=== PATIENT | male | born 1945 | race African-American/Black ===

== ENCOUNTER 2024-02-07 17:45 | Inpatient (IN) | payer MEDICARE, MEDICAID ==
[~2024-02-07] VITALS: Ht 180.3 cm; Wt 70.4 kg
[~2024-02-07 17:45] MED LIST: APIX5TAB PO; ATOR10TA69 PO; CARV12.545 PO; FURO20TA4 PO; MIDO5TAB4 PO; SPIR25TA6 PO; TAMS-11
[2024-02-07 17:47] VITALS: O2SAT 100
[2024-02-07] MEDS ORDERED: CEFTRIAXONE 1GM/50ML 50 ML IV ONE (18:00)
[2024-02-07] MEDS ORDERED: VANCOMYCIN 1G PREMIX 200 ML IV ONE (18:30)
[2024-02-07] MEDS: NOREPINEPHRINE 8MG/250ML PMX 250 ML IV ONE (18:31)
[2024-02-07] MEDS: MIDODRINE HCL 5MG TABLET PO ONE (18:33)
[2024-02-07 19:32] LABS: BASOPHILS % 0.7 % (0.0-2.0); EOSINOPHILS % 0.1 % (0.0-5.0); HEMATOCRIT. 38.8 % (42.0-52.0); HEMOGLOBIN. 12.8 g/dL (14.0-18.0); INR 1.9; LYMPHOCYTES % 16.5 % (20.0-50.0); MEAN CORPUSCULAR HEMOGLOBIN 27.4 pg (28.0-32.0); MEAN CORPUSCULAR HGB CONC 32.9 g/dL (31.0-37.0); MEAN CORPUSCULAR VOLUME 83.1 fL (80.0-94.0); MEAN PLATELET VOLUME 8.5 fl (7.4-10.4); MONOCYTES % 4.1 % (2.0-8.0); NEUTROPHILS % 78.6 % (40.0-76.0); PLATELET 92 x1000/uL (130-400); PROTHROMBIN TIME 20.6 sec (9.6-11.0); RED BLOOD CELL COUNT 4.67 mill/uL (4.7-6.1); RED CELL DISTRIBUTION WIDTH 24.5 % (11.6-14.6); WHITE BLOOD COUNT 10.3 x1000/uL (4.5-11.0)
[2024-02-07 19:33] LABS: DIFFERENTIAL COMMENT 1
[2024-02-07 19:34] LABS: ADD RBC MORPHOLOGY YES
[2024-02-07 19:35] LABS: CHLORIDE 103 mEq/L (98-107); POTASSIUM 4.2 mEq/L (3.5-5.1); SODIUM 136 mEq/L (136-145)
[2024-02-07 19:36] LABS: CALCIUM 8.5 mg/dL (8.7-10.4); CARBON DIOXIDE 12 mEq/L (21-32)
[2024-02-07 19:41] LABS: GLUCOSE 69 mg/dL (70-105); LACTIC ACID 8.9 mmol/L (0.4-2.0)
[2024-02-07 19:42] LABS: CREATININE 3.8 mg/dL (0.6-1.3); UREA NITROGEN BLOOD 105 mg/dL (9-23)
[2024-02-07 19:43] LABS: AMMONIA < 17 uMol/L (<32)
[2024-02-07 19:44] LABS: TROPONIN I HIGH SENSITIVITY 94 ng/L (3.0-53)
[2024-02-07] MEDS: SODIUM CHLORIDE 0.9% 1000ML BAG (SEPSIS BOLUS) IV ONE (19:44)
[2024-02-07] MEDS: PIPERACILLIN/TAZO 3.375G/50ML 50 ML IV ONE (19:44)
[2024-02-07] MEDS: PHENYLEPHRINE 50MG/250ML PMX 250 ML IV ONE (19:45)
[2024-02-07] MEDS: CEFTRIAXONE 1GM/50ML 50 ML IV NR (20:11)
[2024-02-07] MEDS ORDERED: PHENYLEPHRINE 50MG/250ML PMX 250 ML IV PRN (20:15)
[2024-02-07] MEDS: VANCOMYCIN 1G PREMIX 200 ML IV NR (20:42)
[2024-02-07 20:47] LABS: PLATELET ESTIMATE DECREASED
[2024-02-07 20:48] LABS: ANISOCYTOSIS 2+
[2024-02-07 20:49] LABS: OVALOCYTES 1+
[2024-02-07 21:23] LABS: TROPONIN I HIGH SENSITIVITY 78 ng/L (3.0-53)
[2024-02-07] MEDS: BLOOD SUGAR DIAGNOSTIC STRIP TEST NR (22:10)
[2024-02-07] MEDS ORDERED: DOCUSATE SODIUM 100MG CAPSULE PO PRN (22:15)
[2024-02-07] MEDS ORDERED: DEXTROSE 50% WATER 50ML SYRINGE IV PRN (22:15)
[2024-02-07] MEDS ORDERED: CLONIDINE 0.1MG TABLET PO PRN (22:15)
[2024-02-07] MEDS ORDERED: IPRATROPIUM/ALBUTEROL 0.5-3(2.5)MG/3ML NEB HHN PRN (22:15)
[2024-02-07] MEDS ORDERED: PHENYLEPHRINE 50 MG in DEXT 5% WATER 245 ML IV PRN (22:15)
[2024-02-07] MEDS ORDERED: ONDANSETRON HCL 4MG/2ML INJ IV PRN (22:15)
[2024-02-07] MEDS ORDERED: NOREPINEPHRINE 8 MG in DEXT 5% WATER 242 ML IV PRN (22:15)
[2024-02-07] MEDS ORDERED: ACETAMINOPHEN 325MG TABLET PO PRN ×2 (22:15)
[2024-02-07] MEDS ORDERED: GUAIFENESIN 200MG/10ML SUGAR FREE UDC PO PRN (22:15)
[2024-02-07] MEDS ORDERED: SODIUM CHLORIDE 0.9% 1,000 ML IV SCH (22:15)
[2024-02-07 23:21] VITALS: BP 146/111; PULSE 74; RESP 26; TEMP 98
[2024-02-07 23:27] LABS: TRIGLYCERIDE 108 mg/dL (0-150)
[2024-02-07 23:28] LABS: AMYLASE 611 IU/L (30-118); LDL CHOLESTEROL 129 mg/dL (5-100)
[2024-02-07 23:29] LABS: ALBUMIN 2.3 g/dL (3.2-4.8); CHOLESTEROL 167 mg/dL (<200); HDL CHOLESTEROL < 20 mg/dL (>55); PHOSPHORUS 6.8 mg/dL (2.5-4.9)
[2024-02-07 23:30] VITALS: BP 172/153; PULSE 66; RESP 14
[2024-02-07 23:39] VITALS: BP 146/111; PULSE 78; RESP 16; TEMP 98
[2024-02-07 23:39] LABS: ETHANOL BLOOD < 10 mg/dL (<10)
[2024-02-07 23:45] VITALS: BP 128/103; PULSE 71; RESP 15
[2024-02-08] VITALS (92 sets, daily range): BP systolic 69–134; BP diastolic 45–124; PULSE 60–79; RESP 12–33; TEMP 97.3–98.5
[2024-02-08] MEDS: NOREPINEPHRINE 8MG/250ML PMX 250ML IV PRN (00:48)
[2024-02-08 05:12] LABS: HEMATOCRIT 35.3 % (42.0-52.0); HEMOGLOBIN 11.4 g/dL (14.0-18.0); MEAN CORPUSCULAR HEMOGLOBIN 27.1 pg (28.0-32.0); MEAN CORPUSCULAR HGB CONC 32.3 g/dL (31.0-37.0); MEAN CORPUSCULAR VOLUME 84.1 fL (80.0-94.0); RED CELL DISTRIBUTION WIDTH 24.5 % (11.6-14.6)
[2024-02-08 05:18] LABS: CHLORIDE 103 mEq/L (98-107); POTASSIUM 3.9 mEq/L (3.5-5.1); SODIUM 135 mEq/L (136-145)
[2024-02-08 05:19] LABS: CARBON DIOXIDE 16 mEq/L (21-32)
[2024-02-08 05:20] LABS: CALCIUM 8.2 mg/dL (8.7-10.4)
[2024-02-08 05:24] LABS: CREATININE 3.6 mg/dL (0.6-1.3); GLUCOSE 106 mg/dL (70-105)
[2024-02-08 05:25] LABS: LACTIC ACID 6.7 mmol/L (0.4-2.0); UREA NITROGEN BLOOD 83 mg/dL (9-23)
[2024-02-08 05:26] LABS: ALANINE AMINOTRANSFERASE 132 IU/L (10-49); ALBUMIN 2.3 g/dL (3.2-4.8); ASPARTATE AMINOTRANSFERASE 287 IU/L (<34); CREATINE KINASE 89 IU/L (46-171)
[2024-02-08 05:27] LABS: PROTEIN TOTAL 6.3 g/dL (6.0-8.3)
[2024-02-08] MEDS: SODIUM CHLORIDE 0.9% 1,000 ML IV SCH (05:40)
[2024-02-08 06:03] LABS: CLARITY URINE TURBID (CLEAR); COLOR URINE ORANGE (YELLOW); GLUCOSE URINE NEGATIVE (NEGATIVE); KETONES URINE NEGATIVE (NEGATIVE); LEUKOCYTE ESTERASE URINE TRACE (NEGATIVE); NITRITE URINE NEGATIVE (NEGATIVE); OCCULT BLOOD URINE 3+ (NEGATIVE); PROTEIN URINE 1+ (NEGATIVE); SPECIFIC GRAVITY URINE 1.012 (1.005-1.030)
[2024-02-08 06:08] LABS: TROPONIN I HIGH SENSITIVITY 109 ng/L (3.0-53)
[2024-02-08 06:25] LABS: *AMPHETAMINES SCREEN URINE NEGATIVE (NEGATIVE); *BARBITURATES SCREEN URINE NEGATIVE (NEGATIVE); *BENZODIAZEPINES SCREEN URINE NEGATIVE (NEGATIVE); *COCAINE SCREEN URINE NEGATIVE (NEGATIVE); METHADONE URINE SCREEN NEGATIVE (NEGATIVE); OPIATES URINE SCREEN NEGATIVE (NEGATIVE)
[2024-02-08 06:26] LABS: CANNABINOID URINE SCREEN NEGATIVE (NEGATIVE); ECSTASY MDMA SCREEN URINE NEGATIVE (NEGATIVE); PHENCYCLIDINE URINE SCREEN NEGATIVE (NEGATIVE)
[2024-02-08] MEDS: INSULIN LISPRO 100 UNITS/ML SUBCUT SCH (07:43)
[2024-02-08] MEDS: BLOOD SUGAR DIAGNOSTIC STRIP TEST SCH (07:43)
[2024-02-08] MEDS: TAMSULOSIN HCL 0.4MG SR CAPSULE PO SCH (08:30)
[2024-02-08] MEDS: APIXABAN 2.5 MG TABLET PO SCH (08:30)
[2024-02-08] MEDS: PANTOPRAZOLE 40MG DR TABLET PO SCH (08:30)
[2024-02-08 08:42] LABS: TRIGLYCERIDE 109 mg/dL (0-150)
[2024-02-08 08:43] LABS: LDL CHOLESTEROL 117 mg/dL (5-100)
[2024-02-08 08:44] LABS: CHOLESTEROL 173 mg/dL (<200); HDL CHOLESTEROL < 20 mg/dL (>55)
[2024-02-08 08:46] LABS: T4 FREE 0.57 ng/dL (0.89-1.76); THYROID STIMULATING HORMONE 22.55 uIU/mL (0.55-4.78)
[2024-02-08] MEDS: MIDODRINE HCL 5MG TABLET PO SCH ×2 (09:22→18:26)
[2024-02-08] MEDS: ALBUMIN HUMAN 25GM/100ML (25%) IV NR (09:22)
[2024-02-08 09:25] LABS: BACTERIA URINE TRACE; RBC URINE TNTC /hpf (0-2); SQUAMOUS EPITHELIAL CELL URINE 1+ /lpf (RARE/1+); YEAST URINE NONE SEEN
[2024-02-08 09:39] LABS: AMMONIA < 17 uMol/L (<32)
[2024-02-08 09:41] LABS: BG CARBOXYHEMOGLOBIN 0.4 % (0.5-1.5); BG DEOXYHEMOGLOBIN 3.7 % (0.0-5.0); BG FRACTION INSPIRED OXYGEN 21; BG HCO3 ACT 12.7 mmol/L (22.0-26.0); BG METHEMOGLOBIN 0.3 % (0.0-1.5); BG OXYGEN SATURATION 96.3 % (92.0-98.5); BG OXYHEMOGLOBIN 95.6 % (94.0-97.0); BG PCO2 23.1 mmHg (35.0-45.0); BG PH 7.358 (7.350-7.450); BG PO2 93.8 mmHg (75.0-100.0); BG SAMPLE SITE LEFT RADIAL; BG TOTAL HEMOGLOBIN 11.5 g/dL (12.0-18.0); BG VENT MODE ROOM AIR
[2024-02-08 10:37] LABS: PLATELET 90 x1000/uL (130-400)
[2024-02-08] MEDS: MIDODRINE HCL 5MG TABLET PO NR (13:46)
[2024-02-08 15:36] LABS: IRON 91 ug/dL (65-175)
[2024-02-08 15:38] LABS: CREATINE KINASE MB FRACTION 1.2 ng/mL (0.5-3.6)
[2024-02-08] MEDS ORDERED: LOSA100T33 MT (15:38)
[2024-02-08 15:39] LABS: TOTAL IRON BINDING CAPACITY 152 ug/dl (250-425)
[2024-02-08 15:42] LABS: FERRITIN 689 ng/mL (22-322); FOLIC ACID (FOLATE) SERUM 5.07 ng/mL (>5.38)
[2024-02-08 16:15] LABS: VITAMIN B12 SERUM > 2000 pg/mL (211-911)
[2024-02-08 17:35] LABS: INR 2.1; PROTHROMBIN TIME 22.3 sec (9.6-11.0)
[2024-02-08] MEDS: CEFTRIAXONE 1GM/50ML 50 ML IV SCH (18:26)
[2024-02-08] MEDS ORDERED: CEFTRIAXONE 1GM/50ML 50 ML IV SCH (20:00)
[2024-02-08] MEDS: ATORVASTATIN CALCIUM 10MG TABLET PO SCH (21:07)
[2024-02-09] VITALS (46 sets, daily range): BP systolic 67–144; BP diastolic 29–118; PULSE 53–87; RESP 12–35; TEMP 97.4–98
[2024-02-09] MEDS: SODIUM CHLORIDE 0.9% 1,000 ML IV SCH (00:24)
[2024-02-09 05:34] LABS: CHLORIDE 108 mEq/L (98-107); POTASSIUM 3.7 mEq/L (3.5-5.1); SODIUM 139 mEq/L (136-145)
[2024-02-09 05:37] LABS: CALCIUM 8.1 mg/dL (8.7-10.4); CARBON DIOXIDE 16 mEq/L (21-32)
[2024-02-09 05:38] LABS: AMMONIA 47 uMol/L (<32)
[2024-02-09 05:42] LABS: CREATININE 3.2 mg/dL (0.6-1.3); GLUCOSE 77 mg/dL (70-105)
[2024-02-09 05:43] LABS: UREA NITROGEN BLOOD 88 mg/dL (9-23)
[2024-02-09 05:44] LABS: ALANINE AMINOTRANSFERASE 210 IU/L (10-49); ALBUMIN 2.5 g/dL (3.2-4.8); ASPARTATE AMINOTRANSFERASE 442 IU/L (<34)
[2024-02-09 05:45] LABS: BILIRUBIN DIRECT 2.1 mg/dL (<=3.0); BILIRUBIN TOTAL 2.9 mg/dL (0.1-1.0); PROTEIN TOTAL 6.4 g/dL (6.0-8.3)
[2024-02-09 05:50] LABS: BASOPHILS % 0.7 % (0.0-2.0); EOSINOPHILS % 0.1 % (0.0-5.0); HEMATOCRIT. 33.5 % (42.0-52.0); LYMPHOCYTES % 8.7 % (20.0-50.0); MEAN CORPUSCULAR HEMOGLOBIN 27.4 pg (28.0-32.0); MEAN CORPUSCULAR HGB CONC 32.8 g/dL (31.0-37.0); MEAN CORPUSCULAR VOLUME 83.4 fL (80.0-94.0); MEAN PLATELET VOLUME 8.5 fl (7.4-10.4); MONOCYTES % 4.7 % (2.0-8.0); NEUTROPHILS % 85.8 % (40.0-76.0); PLATELET 56 x1000/uL (130-400); RED BLOOD CELL COUNT 4.01 mill/uL (4.7-6.1); RED CELL DISTRIBUTION WIDTH 23.9 % (11.6-14.6); WHITE BLOOD COUNT 8.7 x1000/uL (4.5-11.0)
[2024-02-09 06:45] LABS: DIFFERENTIAL COMMENT 1
[2024-02-09 06:46] LABS: ADD RBC MORPHOLOGY NO
[2024-02-09 07:46] LABS: INR 2.1; PROTHROMBIN TIME 22.2 sec (9.6-11.0)
[2024-02-09] MEDS: CITRIC ACID/SODIUM CITRATE SOLN 30ML UDC PO SCH (09:16)
[2024-02-09] MEDS: LEVOTHYROXINE SODIUM 25MCG TABLET PO SCH (09:17)
[2024-02-09] MEDS: VANCOMYCIN 1GM/200ML PMX (BAXTER) IV NR (13:38)
[2024-02-09] MEDS: LACTULOSE 20G/30ML UDC PO NR (13:53)
[2024-02-09 14:50] LABS: ALBUMIN 2.6 g/dL (3.2-4.8)
[2024-02-09 15:14] LABS: PREALBUMIN < 5.0 mg/dl (10.0-40.0)
[2024-02-09] MEDS ORDERED: FUROSEMIDE 40MG/4ML VIAL IVP NR (17:15)
[2024-02-09] MEDS: DEXT 5%/0.45% NACL 1000ML 1,000 ML IV SCH (21:07)
[2024-02-09 23:38] LABS: HEMATOCRIT 32.8 % (42.0-52.0); HEMOGLOBIN 10.3 g/dL (14.0-18.0)
[2024-02-10] VITALS (93 sets, daily range): BP systolic 48–166; BP diastolic 34–127; PULSE 50–88; RESP 10–23; TEMP 97.5–98.2
[2024-02-10] MEDS: MELATONIN 3MG TABLET PO PRN (03:10)
[2024-02-10 05:10] LABS: HEMATOCRIT. 31.3 % (42.0-52.0); MEAN CORPUSCULAR HEMOGLOBIN 27.2 pg (28.0-32.0); MEAN CORPUSCULAR HGB CONC 32.1 g/dL (31.0-37.0); MEAN PLATELET VOLUME 8.8 fl (7.4-10.4); PLATELET 63 x1000/uL (130-400); RED BLOOD CELL COUNT 3.69 mill/uL (4.7-6.1); RED CELL DISTRIBUTION WIDTH 25.9 % (11.6-14.6); WHITE BLOOD COUNT 11.5 x1000/uL (4.5-11.0)
[2024-02-10 05:12] LABS: DIFFERENTIAL COMMENT 1
[2024-02-10 05:23] LABS: AMMONIA 38 uMol/L (<32)
[2024-02-10 05:25] LABS: CHLORIDE 107 mEq/L (98-107); POTASSIUM 3.6 mEq/L (3.5-5.1); SODIUM 141 mEq/L (136-145)
[2024-02-10 05:28] LABS: CARBON DIOXIDE 13 mEq/L (21-32)
[2024-02-10 05:33] LABS: ALANINE AMINOTRANSFERASE 166 IU/L (10-49); CREATININE 3.3 mg/dL (0.6-1.3); GLUCOSE 115 mg/dL (70-105)
[2024-02-10 05:34] LABS: UREA NITROGEN BLOOD 91 mg/dL (9-23)
[2024-02-10 05:35] LABS: ALBUMIN 2.1 g/dL (3.2-4.8); ASPARTATE AMINOTRANSFERASE 255 IU/L (<34)
[2024-02-10 05:36] LABS: BILIRUBIN DIRECT 1.7 mg/dL (<=3.0); BILIRUBIN TOTAL 2.5 mg/dL (0.1-1.0); PROTEIN TOTAL 5.7 g/dL (6.0-8.3)
[2024-02-10 06:12] LABS: NUCLEATED RED BLOOD CELLS 6 /100 WBC; PLATELET ESTIMATE SLIGHTLY DECREASED; TARGET CELLS 4+
[2024-02-10 06:13] LABS: TEAR DROP CELLS 4+; TOXIC VACUOLATION 1+
[2024-02-10 08:08] LABS: INR 2.4; PROTHROMBIN TIME 25.3 sec (9.6-11.0)
[2024-02-10 08:09] LABS: ANTI-NUCLEAR ANTIBODIES DIRECT Positive (Negative); COMPLEMENT C3 64 mg/dL (82-167); COMPLEMENT C4 29 mg/dL (12-38)
[2024-02-10] MEDS: LACTULOSE 20G/30ML UDC PO NR ×2 (09:04→17:38)
[2024-02-10] MEDS: SODIUM BICARBONATE 100 MEQ in DEXTROSE 5% WATER 900 ML IV SCH (10:18)
[2024-02-10] MEDS ORDERED: LIDOCAINE HCL 1% 10 MG/ML 10ML VIAL ONE (11:05)
[2024-02-10] MEDS: AZITHROMYCIN 500 MG TABLET PO SCH (12:57)
[2024-02-10] MEDS: ALBUMIN HUMAN 25GM/100ML (25%) IV NR (12:57)
[2024-02-10] MEDS: MAGNESIUM 1 G PREMIX 100 ML IV NR (12:57)
[2024-02-10] MEDS: MIDODRINE HCL 5MG TABLET PO NR (12:58)
[2024-02-10] MEDS: LACTATED RINGERS 1,000 ML IV SCH (16:19)
[2024-02-10] MEDS: CEFEPIME 1GM/50ML 50 ML IV SCH (16:19)
[2024-02-10] MEDS: LACTATED RINGERS 1,000 ML IV ONE (16:19)
[2024-02-10 16:43] LABS: BG BASE EXCESS -18.6 mmol/L (-2.0-2.0); BG CARBOXYHEMOGLOBIN 0.5 % (0.5-1.5); BG DEOXYHEMOGLOBIN 6.8 % (0.0-5.0); BG FRACTION INSPIRED OXYGEN 40; BG HCO3 ACT 11.3 mmol/L (22.0-26.0); BG METHEMOGLOBIN 0.3 % (0.0-1.5); BG OXYGEN SATURATION 93.1 % (92.0-98.5); BG OXYHEMOGLOBIN 92.4 % (94.0-97.0); BG PH 7.028 (7.350-7.450); BG PO2 88.7 mmHg (75.0-100.0); BG SAMPLE SITE RIGHT RADIAL; BG VENT MODE NASAL CANNULA
[2024-02-10] MEDS: SODIUM BICARBONATE 8.4% 1 MEQ/ML 50ML SYR IV NR (17:38)
[2024-02-10] MEDS: MIDODRINE HCL 5MG TABLET PO SCH (17:39)
[2024-02-10 18:07] LABS: AMMONIA 100 uMol/L (<32)
[2024-02-10 18:26] LABS: LACTIC ACID 11.3 mmol/L (0.4-2.0)
[2024-02-10] MEDS: NOREPINEPHRINE 32 MG in DEXT 5% WATER 218 ML IV PRN (20:02)
[2024-02-10] MEDS: PHYTONADIONE 10MG/ML INJ SUBCUT SCH (20:29)
[2024-02-10] MEDS ORDERED: CEFEPIME 1GM/50ML 50 ML IV SCH (21:00)
[2024-02-10] MEDS ORDERED: CEFEPIME HCL 1000MG VIAL IM SCH (21:00)
[2024-02-10 21:52] LABS: HEMATOCRIT 28.2 % (42.0-52.0); HEMOGLOBIN 8.8 g/dL (14.0-18.0)
[2024-02-11] VITALS (101 sets, daily range): BP systolic 71–112; BP diastolic 32–90; PULSE 57–104; RESP 12–27; TEMP 95.8–98.2
[2024-02-11] MEDS: PHENYLEPHRINE 50MG/250ML PMX IV PRN (02:17)
[2024-02-11] MEDS: ATROPINE SULFATE 1MG/10ML SYR IV NR (03:42)
[2024-02-11] MEDS: DOPAMINE 400MG/250ML PREMIX 250 ML IV PRN (03:50)
[2024-02-11 05:06] LABS: BG BASE EXCESS -19.5 mmol/L (-2.0-2.0); BG CARBOXYHEMOGLOBIN 0.4 % (0.5-1.5); BG DEOXYHEMOGLOBIN 7.5 % (0.0-5.0); BG FRACTION INSPIRED OXYGEN 50; BG HCO3 ACT 11.6 mmol/L (22.0-26.0); BG METHEMOGLOBIN 0.3 % (0.0-1.5); BG OXYGEN SATURATION 92.4 % (92.0-98.5); BG OXYHEMOGLOBIN 91.8 % (94.0-97.0); BG PCO2 50.6 mmHg (35.0-45.0); BG PH 6.977 (7.350-7.450); BG PO2 79.8 mmHg (75.0-100.0); BG SAMPLE SITE LEFT RADIAL; BG TOTAL HEMOGLOBIN 10.6 g/dL (12.0-18.0); BG VENT MODE VENT - AC
[2024-02-11 05:58] LABS: CARBON DIOXIDE 12 mEq/L (21-32); CHLORIDE 102 mEq/L (98-107); POTASSIUM 3.9 mEq/L (3.5-5.1); SODIUM 138 mEq/L (136-145)
[2024-02-11 05:59] LABS: CALCIUM 7.7 mg/dL (8.7-10.4)
[2024-02-11 06:04] LABS: CREATININE 3.5 mg/dL (0.6-1.3); GLUCOSE 168 mg/dL (70-105); UREA NITROGEN BLOOD 84 mg/dL (9-23)
[2024-02-11 06:05] LABS: ALANINE AMINOTRANSFERASE 230 IU/L (10-49); ALBUMIN 2.2 g/dL (3.2-4.8); ASPARTATE AMINOTRANSFERASE 514 IU/L (<34)
[2024-02-11 06:06] LABS: BILIRUBIN DIRECT 1.9 mg/dL (<=3.0); BILIRUBIN TOTAL 2.7 mg/dL (0.1-1.0); PROTEIN TOTAL 5.8 g/dL (6.0-8.3)
[2024-02-11 06:43] LABS: HEMATOCRIT. 31.6 % (42.0-52.0); HEMOGLOBIN. 9.8 g/dL (14.0-18.0); MEAN CORPUSCULAR HEMOGLOBIN 27.2 pg (28.0-32.0); MEAN CORPUSCULAR HGB CONC 30.9 g/dL (31.0-37.0); MEAN CORPUSCULAR VOLUME 87.9 fL (80.0-94.0); RED CELL DISTRIBUTION WIDTH 27.4 % (11.6-14.6)
[2024-02-11 06:52] LABS: DIFFERENTIAL COMMENT 1
[2024-02-11 08:38] LABS: NUCLEATED RED BLOOD CELLS 4 /100 WBC
[2024-02-11 08:39] LABS: ANISOCYTOSIS 4+; HYPOCHROMASIA 1+
[2024-02-11 08:40] LABS: PLATELET ESTIMATE DECREASED
[2024-02-11 08:50] LABS: BG BASE EXCESS -19.5 mmol/L (-2.0-2.0); BG CARBOXYHEMOGLOBIN 0.5 % (0.5-1.5); BG DEOXYHEMOGLOBIN 9.6 % (0.0-5.0); BG FRACTION INSPIRED OXYGEN 50; BG HCO3 ACT 9.8 mmol/L (22.0-26.0); BG METHEMOGLOBIN 0.4 % (0.0-1.5); BG OXYGEN SATURATION 90.3 % (92.0-98.5); BG OXYHEMOGLOBIN 89.5 % (94.0-97.0); BG PCO2 35.4 mmHg (35.0-45.0); BG PH 7.059 (7.350-7.450); BG PO2 70.5 mmHg (75.0-100.0); BG SAMPLE SITE LEFT BRACHIAL; BG TOTAL HEMOGLOBIN 11.5 g/dL (12.0-18.0); BG TOTAL RESPIRATORY RATE 26 b/min; BG VENT MODE VENT - AC
[2024-02-11] MEDS: SODIUM BICARBONATE 150 MEQ in DEXTROSE 5% WATER 850 ML IV SCH (09:17)
[2024-02-11] MEDS: SODIUM BICARBONATE 8.4% 1 MEQ/ML 50ML SYR IV NR (09:18)
[2024-02-11] MEDS: VASOPRESSIN 20 UNIT in SODIUM CHLORIDE 0.9% 99 ML IV PRN (11:46)
[2024-02-11] MEDS: PHENYLEPHRINE 100 MG in DEXT 5% WATER 240 ML IV PRN (16:05)
[2024-02-12] VITALS (57 sets, daily range): BP systolic 53–101; BP diastolic 33–71; PULSE 80–106; RESP 0–26; TEMP 95.6
[2024-02-12] MEDS: LIDOCAINE HCL 1% 20ML VIAL (Pyxis) INJ INFIL NR (08:04)
[2024-02-12] MEDS: MORPHINE SULFATE 2 MG/ML CPJ (NOT FOR IM USE) IV PRN (12:26)
== END 2024-02-12 13:19 | DRG 871 ==
LOC: ER 17:45 → CVICU 22:05 → EDBEDREQTM 22:13 → EDBEDREQ 22:13 → EDBEDREQSVC 22:13
PROVIDERS: ADMIT Internal Medicine; ATTEND Internal Medicine
PROC: 05HM33Z Insertion of Infusion Device into Right Internal Jugular Vein, Percutaneous Approach (ICD-10-PCS; principal; 2024-02-10)
PROC: B543ZZA Ultrasonography of Right Jugular Veins, Guidance (ICD-10-PCS; 2024-02-10)
PROC: 5A1945Z Respiratory Ventilation, 24-96 Consecutive Hours (ICD-10-PCS; 2024-02-11)
PROC: 0BH17EZ Insertion of Endotracheal Airway into Trachea, Via Natural or Artificial Opening (ICD-10-PCS; 2024-02-11)
DX: A41.9 Sepsis, unspecified organism (principal); G93.41 Metabolic encephalopathy; L89.153 Pressure ulcer of sacral region, stage 3; I21.A1 Myocardial infarction type 2; K76.7 Hepatorenal syndrome; R65.21 Severe sepsis with septic shock; J96.00 Acute respiratory failure, unspecified whether with hypoxia or hypercapnia; N17.0 Acute kidney failure with tubular necrosis; D68.9 Coagulation defect, unspecified; E46 Unspecified protein-calorie malnutrition; E87.1 Hypo-osmolality and hyponatremia; K76.6 Portal hypertension; N39.0 Urinary tract infection, site not specified; R18.8 Other ascites; T83.83XA Hemorrhage due to genitourinary prosthetic devices, implants and grafts, initial encounter; I48.92 Unspecified atrial flutter; Z66 Do not resuscitate; D64.9 Anemia, unspecified; E83.39 Other disorders of phosphorus metabolism; I12.9 Hypertensive chronic kidney disease with stage 1 through stage 4 chronic kidney disease, or unspecified chronic kidney disease; N18.9 Chronic kidney disease, unspecified; K74.60 Unspecified cirrhosis of liver; Z68.21 Body mass index [BMI] 21.0-21.9, adult; K76.9 Liver disease, unspecified; D69.6 Thrombocytopenia, unspecified; E03.9 Hypothyroidism, unspecified; E11.22 Type 2 diabetes mellitus with diabetic chronic kidney disease; R74.01 Elevation of levels of liver transaminase levels; Z79.01 Long term (current) use of anticoagulants; B18.2 Chronic viral hepatitis C; C26.9 Malignant neoplasm of ill-defined sites within the digestive system; J43.2 Centrilobular emphysema; K76.82 Hepatic encephalopathy; Z85.05 Personal history of malignant neoplasm of liver; I25.10 Atherosclerotic heart disease of native coronary artery without angina pectoris; I48.91 Unspecified atrial fibrillation; R13.10 Dysphagia, unspecified; R31.0 Gross hematuria; Y65.8 Other specified misadventures during surgical and medical care; Z86.718 Personal history of other venous thrombosis and embolism; Z87.891 Personal history of nicotine dependence
CPT/HCPCS: 31500; 36415; 36573; 36600; 71045; 74176; 76700; 78580; 80048; 80053; 80061; 80076; 80202; 80305; 80320; 81003; 82040; 82140; 82150; 82375; 82550; 82553; 82570; 82607; 82728; 82746; 82805; 82962; 83036; 83540; 83550; 83605; 83735; 83880; 84100; 84134; 84145; 84439; 84443; 84484; 85014; 85018; 85025; 85027; 85379; 86038; 86160; 86850; 86900; 87070; 87077; 87106; 87186; 93005; 93970; 94002; 94003; 99291; 99292; A6261; C1725; J0692; J0696; J1265; J2270; J2370; J2543; J3370; J3430; J3475; J3490; J7030; J7050; J7060; J7070; J7120; P9047; A4315; G0480